=== PATIENT | female | born 1975 | race Caucasian/White ===

== ENCOUNTER 2024-01-27 07:06 | Outpatient (CLI) | payer MEDICARE, MEDICAID, SELFPAY ==
--- NOTE | 2024-01-27 07:18 | CT_ITS ---
WS: [id number] CT THORACIC SPINE HISTORY: FAILED BACK SYNDROME, THORACIC BACK PAIN TECHNIQUE: Contiguous 2.0 mm axial images are reviewed to thoracic spine. Images are reformatted in s agittal and coronal planes. All CT scans at [facility] use at least one of these dose optimiz ation techniques: automated exposure control; mA and/or kV adjustment per patient size (includes targ eted exams where dose is matched to clinical indication); or iterative reconstruction. DLP: 346.11 mGy.cm COMPARISON: None available. This study is significantly compromised by diffuse osteopenia and extensive fusion hardware throughou t the thoracic spine. Fusion hardware extends from T2-L1. Pedicle screws and long vertical rods are p resent. No fusion screws noted at T7. There does appear to be some very slight anterior wedging and l oss of the super endplate height of L1. Additional fractures would be difficult to determine. Long RI GHT curvature and increased thoracic kyphosis. Central canal is difficult to visualize at the disc levels due to the artifact from the hardware. Dis c protrusions would be difficult to exclude. Lungs are hyperinflated with chronic emphysema. Prior cholecystectomy. Lung RIGHT curvature thoracic spine with increased kyphosis. CT/CT thoracic spin wo con* [id number] IMPRESSION: 1. Quality of this examination is significantly compromised by beam hardening artifact from the extensive posterior fusion hardware and osteopenia. 2. Posterior fusion hardware extends from T2-L1. No posterior fusion screws at T7. As best visualized no hardware fractures. 3. No prior studies for comparison.
--- NOTE | 2024-01-27 07:18 | CT_ITS ---
WS: [id number] CT CERVICAL SPINE HISTORY: FAILED BACK SYNDROME, CERVICAL PAIN TECHNIQUE: Contiguous 2.0 mm axial imaging performed through the entire cervical spine. Sagittal and coronal reformats also performed. All CT scans at [facility] use at least one of these dose o ptimization techniques: automated exposure control; mA and/or kV adjustment per patient size (include s targeted exams where dose is matched to clinical indication); or iterative reconstruction. DLP: 247.97 mGy.cm COMPARISON: None available. Increase in the cervical lordosis. Cervical alignment is normal. Very mild anterior wedging of C7. Di sc spaces are well preserved. Normal facet joint alignment. C1 and C2 are aligned. Odontoid is intact . Posterior fusion hardware is noted beginning at the T2 level. C2-C3: Normal. C3-C4: Normal. C4-C5: Normal. C5-C6: Very mild osteophytic ridging and foraminal narrowing. C6-C7: Mild facet arthritis. Minimal foraminal narrowing. C7-T1: Normal. Soft tissues are normal. Lung apices are clear. CT/CT cervical spin wo con* [id number] IMPRESSION: 1. Slight increase in the LEFT cervical lordosis. 2. No cervical spine fracture or stenosis of any significance. 3. No disc protrusions identified by CT. Areas of minimal foraminal narrowing at C5-6 and C6-7.
== END 2024-01-27 07:07 | disposition home or self-care (01) ==
PROVIDERS: Visit Provider Nurse Practitioner Family
DX: M96.1 Postlaminectomy syndrome, not elsewhere classified (principal); M85.80 Other specified disorders of bone density and structure, unspecified site; M43.24 Fusion of spine, thoracic region; M99.61 Osseous and subluxation stenosis of intervertebral foramina of cervical region
CPT/HCPCS: 72125; 72128

== ENCOUNTER 2024-03-11 18:22 | Emergency (ER) | payer MEDICARE, MEDICAID, SELFPAY ==
[2024-03-11 18:24] VITALS: BP 117/71; PULSE 96; RESP 18; TEMP 36.7; O2SAT 96; BMI 19.0
--- NOTE | 2024-03-11 18:37 | XRR_ITS ---
PROCEDURE INFORMATION: Exam: XR Thoracic Spine Exam date and time: 03/11/2024 6:49 PM Age: 48 years old Clinical indication: Pain in thoracic spine; Prior surgery; Surgery date: 6+ months; Surgery type: Several fusion surgerys over the years. Last one was 8 years ago. Patient HX: PT is extremely kyphotic TECHNIQUE: Imaging protocol: Radiologic exam of the thoracic spine. Views: 3 views. COMPARISON: CT thoracic spin wo con* [id number] 01/27/2024 7:23 AM FINDINGS: Bones/joints: Postsurgical hardware with Alfonso rods and screws noted throughout the thoracic spine. Diffuse osteopenia of the bones. Prominent kyphosis is seen on the lateral view. Slight scoliosis on the AP view, with scoliosis appearing [id number] within the visualized lumbar spine to the left. No definite compression fracture deformity is seen. Hardware appears intact. No definite acute findings. Soft tissues: No significant soft tissue abnormality. XR/XR thoracic spine 2V [id number] IMPRESSION: Postsurgical hardware throughout the thoracic spine with Alfonso rods and screws. Diffuse bony osteopenia and prominent thoracic kyphosis. No definite acute findings.
[2024-03-11 18:48] VITALS: RESP 16
[2024-03-11] MEDS: ondansetron 4 MG Tablet PO (18:48)
[2024-03-11] MEDS: oxyCODONE-APAP 10-325 mg Tablet 1 TAB PO (18:48)
[2024-03-11 18:49] VITALS: PULSE 91; RESP 16; O2SAT 98
--- NOTE | 2024-03-11 19:12 | ED_ITS ---
HPI - Back Pain/Injury General: Chief Complaint: Back Pain/Injury Stated Complaint: back pain Time Seen by Provider: 03/11/24 18:34 History of Present Illness: Patient presents to the ER with increased back pain for 1 week. She states his pain is about bra strap line. She tried to move a freezer about 2 weeks ago and felt a pop. She therefore use more of her oxycodone than normal and she has been without for about the last week. Patient does have a history of pharmacy but was unable to make it to the pharmacy to pick it up. Related Data Allergies Allergy/AdvReac Type Severity Reaction Status Date / Time hydromorphone [From Dilaudid] Allergy ALGY-Rash Verified 03/11/24 18:30 morphine Allergy ALGY-Rash Verified 03/11/24 18:30 Review of Systems General: Reports: 10 or more systems reviewed and unremarkable except in HPI and below Physical Exam Const: COMMON NORMALS: no acute distress, average body habitus, patient oriented x3, no limitations, healthy appearing, alert and well nourished Neck/C-Spine: COMMON NORMALS: no JVD Resp: COMMON NORMALS: normal respiratory effort, No retractions, No use of accessory muscles and clear to auscultation bilaterally AUSCULTATION: clear to auscultation bilaterally Cardio: COMMON NORMALS: no JVD, regular rate, regular rhythm, S1 normal heart sound present, S2 normal heart sound present, No gallops present (Cardio), No clicks present (Cardio), No murmurs present (Cardio) and No rub (Cardio) RATE: regular rate RHYTHM: regular rhythm HEART SOUNDS: S1 normal heart sound present and S2 normal heart sound present GI: COMMON NORMALS: Normal to inspection, nondistended, normoactive bowel sounds present, Soft to palpation, non-tender, No hepatosplenomegaly present and no masses PALPATION: Yes Soft to palpation and Yes No hepatosplenomegaly present Back/Pelvis: OTHER: Tenderness to palpation paraspinal muscles around the lower thorax and thorax lumbar junction. Neuro: COMMON NORMALS: patient oriented x3 SENSORIUM/ORIENTATION: Yes alert Course Vital Signs: Vital signs: Vital Signs Temperature 98.1 F 03/11/24 18:24 Pulse Rate 77 03/11/24 20:15 Respiratory Rate 16 03/11/24 20:15 Blood Pressure 103/75 03/11/24 20:15 Pulse Oximetry 95 03/11/24 20:15 Oxygen Delivery Me thod Room Air 03/11/24 18:49 MDM - Back Pain/Injury Medical Decision Making Thoracic spine x-ray was noted, patient was given oxycodone and Zofran here as well as oxycodone and Zofran to go home on. 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 Medical Records I reviewed the patient's medical records. Labs I reviewed the patient's lab results. Radiology Impressions Thoracic Spine X-Ray 03/11/24 18:37 IMPRESSION: Postsurgical hardware throughout the thoracic spine with Alfonso rods and screws. Diffuse bony osteopenia and prominent thoracic kyphosis. No definite acute findings. All radiology interpretation(s) finalized by discharge Discharge Plan Discharge Patient Disposition: Home Clinical Impression: Thoracic back pain Condition: Stable Discharge Orders: Discharge ED (Routine); Ordered 03/11/24 Ordered By: Guilherme Holt Patient Instructions: Opioid Safety, Pain Management Activity Restrictions/Additional Instructions: Thank you for choosing [facility] for your healthcare needs today. Please realize that you were seen in the emergency department and that we are providing you with an emergency medical screening exam and this may not be a complete and all exclusive of all testing and/or medical workup we may need to determine your element or severity of your illness. It is very important that you follow-up as instructed with your primary care provider or specialist for the additional evaluation and to discuss your medical treatment plan. You may return to the emergency department should you have concerns or if your condition changes or worsens in any way. Coding Level of Care Code ED Hair Salon Manager for Josephine Logan
[2024-03-11 19:31] VITALS: BP 109/72; PULSE 86; RESP 16; O2SAT 98
[2024-03-11 20:15] VITALS: BP 103/75; PULSE 77; RESP 16; O2SAT 95
== END 2024-03-11 20:17 | disposition home or self-care (01) ==
PROVIDERS: Emergency Provider Emergency Medicine
DX: M54.6 Pain in thoracic spine (principal)
CPT/HCPCS: 72070; 99283; Q0162

== ENCOUNTER 2024-04-14 22:05 | Emergency (ER) | payer MEDICARE, MEDICAID, SELFPAY ==
[2024-04-14 22:11] VITALS: BP 119/76; PULSE 67; RESP 16; TEMP 36.8; O2SAT 98
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
[2024-04-14 22:51] LABS: Basophils % 0.3 %; Eosinophils # 0.1 10^3/uL (0.0-0.8); Eosinophils % 0.9 %; Hematocrit 39.6 % (36-47); Lymphocytes # 1.7 10^3/uL (0.8-4.8); Lymphocytes % 15.2 %; Mean Corpuscular HGB Conc 30.3 g/dL (30-55); Mean Corpuscular Hemoglobin 30.2 pg (27-33); Mean Corpuscular Volume 99.7 fl (85-98); Mean Platelet Volume 9.8 fL (7.4-10.4); Monocytes # 0.6 10^3/uL (0.2-0.9); Monocytes % 5.4 %; Neutrophils # 8.63 10^3/uL (1.8-7.7); Neutrophils % 77.8 %; Nucleated Red Blood Cells % 0 %; Platelet Count 248 10^3/cmm (157-399); Red Blood Count 3.97 10^6/uL (3.85-5.65); White Blood Count 11.09 10^3/uL (3.29-11.43)
[2024-04-14] MEDS: ketorolac 30 mg/mL INJ IVP (22:51)
[2024-04-14] MEDS: ondansetron 2 mg/ML SDV 2 mL 8 MG IVP (22:52)
[2024-04-14 22:54] VITALS: BP 96/69; PULSE 65; O2SAT 98
[2024-04-14 23:10] LABS: Alanine Aminotransferase 9 U/L (0-33); Albumin Level 3.7 g/dL (3.5-5.2); Alkaline Phosphatase 88 U/L (35-105); Aspartate Amino Transferase 17 U/L (0-32); Blood Urea Nitrogen 16 mg/dL (6-20); Calcium 8.4 mg/dL (8.5-10.5); Carbon Dioxide 19 mmol/L (22-29); Chloride 103 mmol/L (98-107); Creatinine Clr Calc Pharmacy 114.5413; Globulin 2.7 g/dL (1.3-4.6); Glomerular Filtration Rate 132.2 mL/min (90-130); Glucose 101 mg/dL (65-115); Lipase 20 U/L (13-60); Osmolality Calculated 283 mOsm/kg (285-295); Sodium 136 mmol/L (136-145); Total Bilirubin 0.2 mg/dL (0.15-1.2); Total Protein 6.4 g/dL (6.6-8.7)
[2024-04-14 23:11] LABS: Alcohol Level < 10 mg/dL (0-10); Anion Gap 17.7 (5-19); Potassium 3.7 mmol/L (3.5-5.1)
[2024-04-14 23:12] LABS: Lactic Sepsis W/Reflex 2.1 mmol/L (0.5-2.2)
[2024-04-14 23:38] LABS: Covid PCR NEGATIVE (Negative); Influenza A NEGATIVE (Negative); Influenza B NEGATIVE (Negative); Respiratory Syncytial Virus Ce NEGATIVE (Negative)
[2024-04-14 23:45] VITALS: BP 89/56; PULSE 68; O2SAT 98
[2024-04-14 23:52] LABS: Amphetamines Screen Urine Positive (Negative); Barbiturates Screen Urine Negative (Negative); Benzodiazepines Screen Urine Negative (Negative); Cocaine Screen Urine Negative (Negative); Opiate Screen Urine Negative (Negative); PCP Screen Urine Negative (Negative); THC Screen Urine Positive (Negative)
[2024-04-15] VITALS: BP 80/52; PULSE 61; O2SAT 100
[2024-04-15] MEDS: sodium chloride 0.9% 500 ML 999 ML IV (00:12)
[2024-04-15 00:13] LABS: Add Urine Culture? Yes; Bacteria Urine 4+ /hpf; Bilirubin Urine 1+ (Negative); Blood Urine Negative (Negative); Glucose Urine UA Negative (Normal); Hyaline Casts Urine 10.32 /lpf; Ketones Urine Negative (Negative); Leukocyte Esterase Urine Trace (Negative); Nitrate Urine Positive (Negative); Protein Urine 1+ (Negative); RBC Urine 21-50 /hpf (0-2); Specific Gravity, Urine 1.042 (1.005-1.030); Squamous Epithelial Cell Urine 0-5 /hpf (0-5); UA Slide Review UA Slide Review Perf; Urine Appearance Clear (CLEAR); Urine Color Dark Yellow (Yellow); WBC Urine 21-50 /hpf (0-5)
[2024-04-15] MEDS: cefTRIAXone 1,000 mg SDV 1000 MG IVP (00:25)
[2024-04-15 00:30] VITALS: BP 88/53; PULSE 61; O2SAT 100
[2024-04-15 00:36] LABS: Reflex Lactate Order REFLEX LACTIC ORDERD
[2024-04-15 00:53] VITALS: RESP 15
[2024-04-15] MEDS: oxyCODONE 5 mg IR Tab/Cap PO (00:53)
[2024-04-15 00:57] VITALS: BP 95/56; PULSE 55; O2SAT 100
== END 2024-04-15 00:55 | disposition home or self-care (01) ==
PROVIDERS: Emergency Provider Emergency Medicine
DX: N39.0 Urinary tract infection, site not specified (principal); E86.0 Dehydration; R11.10 Vomiting, unspecified; F19.10 Other psychoactive substance abuse, uncomplicated; G89.4 Chronic pain syndrome; Z11.52 Encounter for screening for COVID-19
CPT/HCPCS: 0241U; 36415; 80053; 80306; 80307; 81001; 83605; 83690; 85025; 86140; 87040; 87077; 87086; 87186; 96374; 96375; 99284; J0696; J1885; J2405; J7040